=== PATIENT | male | born 1970 | race Caucasian/White ===

== ENCOUNTER → 2021-02-19 07:33 | Outpatient (CLI) | payer OTHER, SELFPAY ==
--- NOTE | 2021-02-19 07:35 | DI.RAD.S_ITS ---
PROCEDURE: XR FOOT LT MIN 3V INDICATIONS: Pain TECHNIQUE: 3 views of the foot were acquired. COMPARISON: None. FINDINGS: Bones: No fractures or dislocations. No suspicious bony lesions. Soft tissues: No tibiotalar joint effusion. Achilles tendon appears normal. IMPRESSION: No foreign body seen, reported possible metallic wire in the heel area. No fracture found. Dictated by: Juan José Lassiter M.D. on 02/19/2021 at 8:09 Approved by: Juan José Lassiter M.D. on 02/19/2021 at 8:09
== END ==
PROVIDERS: Referring Provider Physician Assistant; Visit Provider Physician Assistant
DX: M79.672 Pain in left foot (principal)
CPT/HCPCS: 73630

== ENCOUNTER → 2021-07-19 08:00 | Outpatient (CLI) | payer OTHER, SELFPAY ==
[2021-07-19 08:33] LABS: COVID19 -Nasal RAPID Negative (Negative)
== END ==
PROVIDERS: Visit Provider Nurse Practitioner Family
DX: Z20.822 Contact with and (suspected) exposure to COVID-19 (principal)
CPT/HCPCS: 87635